=== PATIENT | female | born 1985 | race American Indian/Alaskan Native ===

== ENCOUNTER 2019-01-13 14:57 | Outpatient (CLI) | payer BC ==
[2019-01-13] MEDS ORDERED: LACTATED RINGERS 500 ML IV ONE (16:19)
[2019-01-13 17:24] VITALS: BP 124/77
[2019-01-13 17:24] LABS: Bacteria,Urine 2+ /HPF (Negative); Bilirubin,Urine NEG (Negative); Blood,Urine LG (Negative); Color,Urine Amber (Yellow); Mucus,Urine FEW /HPF; Protein,Urine <15 mg/dL mg/dL (Negative); Sperm,Urine FEW /HPF (NP)
== END 2019-01-13 18:05 | disposition home or self-care (01) ==
LOC: TRG 14:57 → LD 14:59 → TRG 18:05
PROVIDERS: ATTEND Obstetrics & Gynecology
DX: O47.03 False labor before 37 completed weeks of gestation, third trimester (principal); Z3A.35 35 weeks gestation of pregnancy
CPT/HCPCS: 81001